=== PATIENT | male | born 1985 | race Caucasian/White ===

== ENCOUNTER 2016-05-08 08:28 | Emergency (ER) | payer OTHER ==
[2016-05-08 08:53] VITALS: BP 138/88
--- NOTE | 2016-05-08 09:46 | EDM.PDOC ---
ED HPI Trauma - General Chief Complaint: Upper Extremity Injury/Pain Stated Complaint: RIGHT ARM SWELLING Time Seen by Provider: 05/08/16 09:00 Source: Reports: Patient History Limitations: Reports: No limitations - History of Present Illness INITIAL COMMENTS - FREE TEXT/NARRATIVE: 31-year-old male arrives with some generalized swelling and slight bruising in his right forearm after work. He had a rotator cuff surgery one year ago on the right shoulder, and since that time has had intermittent paresthesias and discomfort. This morning after work however he noticed his forearm from the elbow to the wrist was "puffy" and larger than his left arm. This has not happened before and it concerned him. It also appears he's got some slight bruising around the palmar aspect of the wrist. He has no recent trauma that he remembers, his work activity was actually less last night than it typically is. No fevers or chills. He has been noticing more pain in his elbow when he uses his right hand. Severity: mild Pain/Injury Location: Reports: upper extremity, right Associated Symptoms: Reports: denies other symptoms Allergies/ADRs: Allergies No Known Allergies Allergy (Verified 04/20/15 18:05) Home Medications: Ambulatory Orders NK [No Known Home Meds] 04/20/15 [Confirmed 05/08/16] Past Medical History Musculoskeletal History: Reports: Arthritis, Other (see below) Other Musculoskeletal History: Bursitis of the right shoulder - Past Surgical History Musculoskeletal Surgical History: Reports: Arthroscopic procedure, Shoulder surgery Social & Family History - Tobacco Use Smoking Status *Q: Current Every Day Smoker Years of Tobacco use: 16 Packs/Tins Daily: 0.5 Used Tobacco, but Quit: No Second Hand Smoke Exposure: No - Caffeine Use Caffeine Use: Reports: Energy drinks - Recreational Drug Use Recreational Drug Use: No Review of Systems - Review of Systems Review Of Systems: See Below Constitutional: Denies: fever Respiratory: Denies: shortness of breath GI/Abdominal: Denies: Nausea, Vomiting Genitourinary: Reports: no symptoms Skin: Reports: bruising (Very faint slight bruising noted around the distal forearm) Psychiatric: Reports: no symptoms Trauma Exam - Physical Exam Exam: See Below Exam Limited By: No limitations General Appearance: Reports: alert, no apparent distress Head: Reports: atraumatic Respiratory Exam: Reports: no respiratory distress Extremities: Reports: other (Exam is otherwise limited to the right arm. He has no tenderness or swelling around the shoulder. There is tenderness over the lateral epicondyle of the right elbow with increased pain with extension of the wrist against resistance. He does have some objective edema of the right forearm, slightly worse in her the rest and some vague nonblanching bruising over the flexor surface of the forearm. There is no edema of the hand or upper arm.) Course - Vital Signs Last Recorded V/S: Last Vital Signs Temp 97.0 F 05/08/16 08:52 Pulse 63 05/08/16 08:52 Resp 16 05/08/16 08:52 BP 138/88 05/08/16 08:52 Pulse Ox 99 05/08/16 08:52 - Re-Assessments/Exams Free Text/Narrative Re-Assessment/Exam: 05/08/16 09:45 A vascular ultrasound study was done of the right upper extremity to rule out the unlikely but real chance of a upper extremity DVT. That was negative. Patient is then scheduled to recheck next week with Dr. Sivakumar Robison of orthopedics for his right tennis elbow and other concerns. Departure - Departure Time of Disposition: Disposition: Home, Self-Care 01 Condition: good Clinical Impression: Right tennis elbow Instructions: Tennis Elbow, [id number] Referrals: PCP,None [Primary Care Provider] - Forms: ED Department Discharge Care Plan Goals: Recheck with Dr. Sivakumar Robison next Wednesday, they will contact you with the time. Resume regular activity as tolerated.
--- NOTE | 2016-05-08 09:55 | US ---
VL Duplex Upr Ext Veins Ltd Rt FINDINGS: The vessels of the right upper extremity demonstrate complete compressibility. There is no visualized intraluminal thrombus. The visualized portions of the subclavian and internal jugular ve ins are also patent without evidence of thrombus. IMPRESSION: The examination is negative for deep venous thrombosis of the right upper extremity.
== END 2016-05-08 10:16 | disposition home or self-care (01) ==
LOC: JP.ED 08:28
DX: M77.11 Lateral epicondylitis, right elbow (principal); F17.210 Nicotine dependence, cigarettes, uncomplicated; Y99.0 Civilian activity done for income or pay
CPT/HCPCS: 93971-26; 93971-RT; 99284-25

== ENCOUNTER 2016-05-14 04:32 | Emergency (ER) | payer OTHER ==
[2016-05-14 04:59] VITALS: BP 152/96
--- NOTE | 2016-05-14 05:29 | EDM.PDOC ---
ED HPI Trauma - General Chief Complaint: Upper Extremity Injury/Pain Stated Complaint: SWOLLEN RIGHT ARM Time Seen by Provider: 05/14/16 05:07 Source: Reports: Patient History Limitations: Reports: No limitations - History of Present Illness INITIAL COMMENTS - FREE TEXT/NARRATIVE: History of present illness: [This 31-year-old male was seen in the emergency room diagnosed with tennis elbow structures to followup with Dr. Robison in orthopedics. Comes in once again early this morning with complaints of pain and swelling of his upper forearm on the right. He is wearing a tennis elbow splint and just distal to the splint he was having some trouble with swelling this concerned him and so he came in but by the time he arrived his swelling had gone way down. He tells me that Dr. Robison wanted him to get an EMG and a string maker he is to get that done. He is currently on oral steroids for his tennis elbow from Dr. Robison. He did have a negative vascular studies on the ruling out DVT already.] Review of systems: As per history of present illness and below otherwise all systems reviewed and negative. Past medical history: As per history of present illness and as reviewed below otherwise noncontributory. Surgical history: As per history of present illness and as reviewed below otherwise noncontributory. Social history: No reported history of drug or alcohol abuse. Family history: As per history of present illness and as reviewed below otherwise noncontributory. Physical exam: HEENT: Atraumatic, normocephalic, Lungs: Clear to auscultation, Heart: S1S2, regular, Abdomen: Soft, . Extremities: One is able to discern the exact location of the arm band he was wearing and just distal to this he was having some swelling and edema which has gone down. He has had pain over the lateral condyle consistent with tennis elbow. Neuro: Awake, alert, oriented. Exam nonfocal. Diagnostics: [] Therapeutics: [] Impression: [Epicondylitis lateral of right arm] Plan: [I am reassuring him that there is nothing serious going on but it is not a blood clot I think that it's related to his armband and advised that she take this frequently when he is using it as it appeared to be restricting venous return causing the swelling. He seems to be quite hyper concerned about this problem and was difficult to try to reassure him. ] Definitive disposition and diagnosis as appropriate pending reevaluation and review of above. Allergies/ADRs: Allergies No Known Allergies Allergy (Verified 05/14/16 04:49) Home Medications: Ambulatory Orders NK [No Known Home Meds] 04/20/15 [Confirmed 05/11/16] Past Medical History HEENT History: Reports: Impaired vision Musculoskeletal History: Reports: Arthritis, Other (see below) Other Musculoskeletal History: Bursitis of the right shoulder - Infectious Disease History Infectious Disease History: Reports: Chicken pox - Past Surgical History Musculoskeletal Surgical History: Reports: Arthroscopic procedure, Shoulder surgery Social & Family History - Tobacco Use Smoking Status *Q: Current Every Day Smoker Years of Tobacco use: 15 Packs/Tins Daily: 0.5 Used Tobacco, but Quit: No Second Hand Smoke Exposure: No - Caffeine Use Caffeine Use: Reports: Energy drinks - Recreational Drug Use Recreational Drug Use: No Review of Systems - Review of Systems Review Of Systems: ROS reveals no pertinent complaints other than HPI. Trauma Exam - Physical Exam Exam: See Below Course - Vital Signs Last Recorded V/S: Last Vital Signs Temp 36.8 C 05/14/16 04:51 Pulse 86 05/14/16 04:51 Resp 18 05/14/16 04:51 BP 152/96 H 05/14/16 04:51 Pulse Ox 97 05/14/16 04:51 Departure - Departure Time of Disposition: 05:28 Disposition: Home, Self-Care 01 Condition: good Clinical Impression: Right tennis elbow Forms: ED Department Discharge Additional Instructions: Please follow up with Dr. Robison as we discussed. I would advise that you remove the splint you are using on your right forearm frequently to avoid impedance of venous return and the swelling that you experienced tonight.
== END 2016-05-14 05:50 | disposition home or self-care (01) ==
LOC: JP.ED 04:32
DX: M77.11 Lateral epicondylitis, right elbow (principal); F17.210 Nicotine dependence, cigarettes, uncomplicated
CPT/HCPCS: 99283